=== PATIENT | male | born 1960 | race Asian ===

== ENCOUNTER 2024-10-14 13:56 | Emergency (ER) | payer OTHER, SELFPAY ==
--- NOTE | ~2024-10-14 | XR_ITS ---
CLINICAL HISTORY: G tube position (we placed new Gtube) 1 view abdomen Comparison: None Findings: Enteric contrast was injected via a gastrostomy tube. The tube tip is at the level of the midbody of the stomach. There is no extravasation of contrast. No pneumoperitoneum or pneumatosis. No abnormal calcifications. No acute fractures. IMPRESSION: There is a gastrostomy tube within the midbody of the stomach. There is no gastrostomy tube leak. This document has been electronically signed by: Suzy Dawn MD on 10/14/2024 16:13:22
[2024-10-14 14:25] VITALS: BP 115/79; BP 146/82; PULSE 74; PULSE 83; RESP 16; TEMP 36.9; O2SAT 100; O2SAT 98; BMI 24.5
--- NOTE | 2024-10-14 15:00 | PC.NURSE ---
dr nicole at bedside to replace the g-tube, replaced with 22 [place]ian
[2024-10-14 15:01] VITALS: BP 134/74; PULSE 76; RESP 18; O2SAT 97
--- NOTE | 2024-10-14 15:08 | ED_ITS ---
HPI - General Adult General Chief complaint: General Medical Stated complaint: G2 malfunction Time Seen by Provider: 10/14/24 15:07 Source: patient Mode of arrival: EMS Limitations: no limitations History of Present Illness HPI narrative: This is a 64 years old presented to the emergency department because of feeding tube malfunction. He was seen [facility] for the same and they inserted a Camejo catheter on October 08 2024. He called 911 today because of the feeding tube was no working he denies any systemic symptoms fever vomiting diarrhea abdominal pain Onset (ago): hour(s) (5) Location: abdomen Radiation: non-radiation Severity: mild Relieving factors: none Exacerbating factors: none Related Data Allergies Allergy/AdvReac Type Severity Reaction Status Date / Time No Known Allergies Allergy Verified 10/14/24 14:28 Review of Systems Constitutional: Constitutional: Reports no additional constitutional complaints Cardiovascular: Cardiovascular: Reports no additional cardiovascular complaints Gastrointestinal: Gastrointestinal: Reports no additional gastrointestinal complaints [facility] Past Medical History Attestation statement: The following information was validated with the patient. [facility] Narrative: He has history of chronic pain, COPD, urinary retention, dysphagia, anemia. Source: nursing notes reviewed Social History Social History Advance Directives: No Advance Directives Information Provided: No Physical Exam ED Vital Signs: Vital Signs - 24 hr 10/14/24 14:25 10/14/24 15:01 Temperature 98.4 F Pulse Rate 74 76 Respiratory Rate 16 18 Blood Pressure 115/79 134/74 Pulse Oximetry 100 97 Oxygen Delivery Method Nasal Cannula Nasal Cannula Oxygen Flow Rate 4 BMI result Body Mass Index 24.5 No acute distress looks comfortable Const General: cooperative Nutritional Appearance: well nourished Orientation/consciousness: patient oriented x3 HENMT Head: Yes normal to inspection General nose exam: Normal external nose present Face and sinus: Yes normal facial exam Neck Neck: Yes normal visual inspection and Yes full ROM Resp Effort & Inspection: normal respiratory effort and able to speak in complete sentences Auscultation: clear to auscultation bilaterally Cardio Jugular venous distension: no JVD Rate: regular rate Rhythm: regular rhythm GI Inspection: Yes normal to inspection Palpation (GI): Soft to palpation, not firm, nontender and no guarding Auscultation: normal bowel sounds Skin General skin exam: no rashes or lesions noted and elasticity normal Lesions: no lesions Rashes: no rashes Neuro General: patient oriented x3 Course Reevaluation(s) Reevaluation #1: X-ray showed good position of the G-tube Time: 16:20 Medications Administered Discontinued Medications Generic Name Dose Route Start Last Admin Trade Name José Miguel PRN Reason Stop Dose Admin Diatrizoate Meglum/Diatrizoate Sod 30 ml 10/14/24 15:34 10/14/24 15:34 Diatrizoate Meglumine, Sodium 30 Ml Solution PO 10/14/24 15:35 30 ml ONCE ONE Administration Procedures Procedure Narrative Procedure Narrative: G-TUBE replacement I inserted 22 F G tube through the stoma baloon inflated, Medical Decision Making Medical Decision Making MDM Narrative: Patient presented to the emergency department because of the G-tube malfunctioning he has right now Camejo catheter in the stoma. The Camejo catheter was removed I inserted a 22 [place]ian gastrostomy feeding tube Differential Diagnosis Differential Diagnoses: The differential diagnosis associated with the presentation includes G-tube dysfunction/stoma closure Independent Interpretation I performed an independent interpretation of an: Plain X-Ray Interpretation: I reviewed interpreted the x-ray myself good position G tube Radiology Impression Discussion of test interpretation with radiology: I have reviewed the radiologist's reading. External Record Review Review discharge paper from [facility] Discharge Plan Discharge Clinical Impression: Gastrostomy tube dysfunction, Encounter for gastrojejunal tube placement Patient Disposition: Home, Self-Care Instructions: How to Use and Care for Your PEG Tube (ED) Referrals: Elver Santoyo PA [Primary Care Provider] - 2 days Print Language: Polish
[2024-10-14] MEDS: Diatrizoate Meglumine, Sodium 30 ML SOLUTION PO (15:34)
[2024-10-14 17:56] VITALS: BP 134/74; PULSE 76; RESP 18; TEMP -17.7; TEMP 0; O2SAT 97
== END 2024-10-14 17:58 | disposition home or self-care (01) ==
PROVIDERS: Emergency Provider Emergency Medicine; PCP Physician Assistant
DX: K94.23 Gastrostomy malfunction (principal); R10.2 Pelvic and perineal pain
CPT/HCPCS: 43762; 74018; 99284

== ENCOUNTER → 2024-10-14 15:07 | Outpatient (BNV) | payer OTHER, SELFPAY | PROVIDERS: Emergency Provider Emergency Medicine; PCP Physician Assistant; Visit Provider Radiology Diagnostic Radiology | DX: Z93.1 Gastrostomy status (principal) | CPT/HCPCS: 74018 ==